=== PATIENT | male | born 1950 | race Caucasian/White ===

== ENCOUNTER 2018-05-12 07:27 | Inpatient (IN) ==
[2018-05-12] MEDS ORDERED: Metoprolol Tartrate 25 MG Tablet PO ONE (08:16)
[2018-05-12] MEDS ORDERED: Chlorhexidine Gluconate 2% 1 Pack (2 Cloths) TOPICAL ONE (08:16)
[2018-05-12] MEDS ORDERED: ceFAZolin 1 GM Premix Inj 1 GM/50 ML PIGGYBACK IV.SIG SCH (09:00)
[2018-05-12] MEDS ORDERED: Sodium Chlor 0.9% Inj 500 ML IV.SIG SCH (09:00)
--- NOTE | 2018-05-12 10:23 | ECG ---
Date Performed: 05/12/2018 Time Performed: 08:09:34 PTAGE: 67 years EKG: Sinus rhythm WITH SINUS ARRHYTHMIA BORDERLINE ECG PREVIOUS TRACING : 11/15/2014 09.47 DOCTOR: Prashant Banuelos Interpretating Date/Time 05/12/2018 10:21:05
[2018-05-12] MEDS ORDERED: Bupivacaine/Epinephrine PF Inj 0.5% 30 ML Vial ONE (11:26)
[2018-05-12] MEDS ORDERED: Heparin 10,000 UNITS/10 ML Vial (for IV use) ONE (11:26)
[2018-05-12] MEDS ORDERED: Heparin - SQ 10,000 UNITS/ML Vial ONE (11:27)
[2018-05-12] MEDS ORDERED: Protamine Sulfate Inj 50 MG/5 ML Vial ONE (11:29)
[2018-05-12] MEDS ORDERED: Iohexol 300 MG/ML 50 ML Vial (for Rad Diag) IVCONTRAST ONE (13:34)
[2018-05-12] MEDS ORDERED: fentaNYL Citrate Inj 100 MCG/2 ML Ampul ONE (14:45)
--- NOTE | 2018-05-12 15:14 | P.BOP ---
Date of procedure: 05/12/18 Procedure: Percutaneous Endovascular Aneurysm Repair Anesthesia: GETA, local Surgeon: Anderson Triplett MD Estimated blood loss (mL): 350 Pathology: none sent Condition: stable Disposition: floor
[2018-05-12] MEDS ORDERED: Potassium Chlor 20 mEq Premix 20 MEQ/100 ML PIGGYBACK IV.SIG PRN ×2 (15:33→15:34)
[2018-05-12] MEDS ORDERED: SODIUM CHLOR 0.9% IV.SIG PRN (15:39)
[2018-05-12] MEDS ORDERED: POTASSIUM PHOSPHATE IV.SIG PRN (15:39)
[2018-05-12] MEDS ORDERED: Mag Sulf 1 gm/100 ml Premix 200 ML IV.SIG PRN (15:41)
[2018-05-12] MEDS ORDERED: Morphine Sulfate Inj 2 MG/ML Vial IV.PUSH PRN (15:43)
--- NOTE | 2018-05-12 19:31 | MP ---
cc: Anderson Triplett MD DATE OF OPERATION: 05/12/2018 PREOPERATIVE DIAGNOSIS: Infrarenal abdominal aortic aneurysm. POSTOPERATIVE DIAGNOSIS: Infrarenal abdominal aortic aneurysm. PROCEDURE: Endovascular aneurysm repair with bilateral common femoral access repairs. SURGEON: Anderson Triplett MD RECRUITING OPERATIONS CONSULTANT: IBIS Gorman ANESTHESIA: General/local. DESCRIPTION OF PROCEDURE: With the patient in the supine position. General endotracheal anesthesia was induced. The abdomen was prepped with Betadine. The abdomen, both groins and thighs prepped with Betadine and draped in a sterile fashion. The skin and subcutaneous tissues surrounding the old right groin scar was infiltrated with 0.5% Marcaine with epinephrine. The scar was re-incised and dissection taken sharply through the underlying subcutaneous tissue. The distal external iliac, common femoral artery and the common femoral artery to PTFE graft anastomosis circumferentially mobilized and encircled with vessel loops. Attention was then directed to the access of the contralateral femoral. Utilizing ultrasound guidance, the left common femoral artery was accessed with an 18 gauge needle, a J wire advanced under fluoroscopic guidance into the iliac artery. The needle was exchanged for a 7-Mosotho hemostatic sheath, which was deployed over the J wire. An angled Glidewire was negotiated into the suprarenal aorta. Perclose devices were prepositioned at the 10 and 2 o'clock position and the 7-Mosotho hemostatic sheath was then replaced. Angled Glidewires were in the gap navigated bilaterally to the suprarenal aorta and exchanged over Berenstein catheters for Amplatz guidewires. On the right side, an 18-Mosotho hemostatic sheath was deployed and on the left a 14-Mosotho hemostatic sheath. A marker pigtail catheter was then advanced via the left femoral sheath to the suprarenal level and flush aortogram performed, accurately delineating the origin of the renal arteries. The main body endoprosthesis was then delivered via the right femoral sheath and predeployed immediately distal to the renal arteries. The contralateral gate was engaged with a Berenstein angled Glidewire combination. The marker pigtail catheter was delivered into the endoprosthetic lumen and diluted contrast injected in a retrograde fashion via the left femoral sheath, delineating the left iliac bifurcation and allowing appropriate contralateral limb length selection. The contralateral limb was placed and deployed. The proximal deployment at the aortic level was completed and then the marker pigtail catheter replaced in the right femoral sheath and with diluted contrast injected retrograde via the right femoral sheath outlining the right common iliac bifurcation, allowing accurate deployment of an iliac extension limb, which was positioned immediately proximal to the bifurcation with 5 mm overlap proximally. A compliant balloon was then utilized to balloon dilate at the aortic, iliac seal areas and overlapping zones. Completion aortogram revealed secure repair with no technical defects or endoleaks. It should be noted that following deployment of the hemostatic sheaths, the patient was systemically heparinized with 5000 units. ACT measured in the 240s and during the procedure, an additional 2000 units of heparin was administered to maintain ACT above 250. At the completion of the procedure, the right femoral sheath was removed and the femoral puncture site repaired with interrupted 6-0 Prolene. On the left side, the predeployed Perclose devices did not provide adequate hemostasis. Despite placement of 2 additional Perclose devices, hemostasis remained inadequate. Thus, the left common femoral artery access site was exposed through a transverse groin incision and the puncture site repaired with interrupted 6-0 Prolene. At the conclusion of the procedure, robust biphasic Doppler flow was confirmed within both the pedal arteries. Hemostasis was adequate after reversal of heparin with 30 mg of protamine. Strict hemostasis was achieved. Both groin incisions were secured with 2 separate deep layers of continuous 4-0 Monocryl and skin with continuous subcuticular 5-0 Monocryl. Sterile dressings were applied. The patient returned to the recovery room in stable condition, having tolerated the procedure well. MD PADILLA Peterson/kwesi , 05:30 PM , 05:42 PM
[2018-05-13] MEDS ORDERED: Venlafaxine XR 75 MG Capsule PO SCH (09:00)
[2018-05-13 10:44] VITALS: RESP 16
[2018-05-13 12:33] VITALS: BP 123/60; PULSE 63; TEMP 98.2; O2SAT 94
[2018-05-14] MEDS ORDERED: Lisinopril 20 MG Tablet PO SCH (09:00)
== END 2018-05-13 15:22 | disposition home or self-care (01) ==
LOC: HSDC 07:27 → EDSTATUS 10:00 → HCPC 20:05
PROVIDERS: ADMIT Surgery Vascular Surgery; ATTEND Surgery Vascular Surgery